=== PATIENT | female | born 1990 | race African-American/Black ===

== ENCOUNTER 2023-03-11 08:12 | Emergency (ER) | payer SELFPAY ==
[2023-03-11 08:20] VITALS: BP 128/94; PULSE 79; RESP 16; TEMP 36.4; O2SAT 99
[2023-03-11 09:04] LABS: BE (Venous) 4 mmol/L (-2-3); HCO3 (Venous) 30 mmol/L (23-28); O2 Sat (Venous) 75 %; TCO2 (Venous) 27 mmol/L (24-29); pCO2 (Venous) 53 mmHg (41-51); pH (Venous) 7.35 (7.31-7.41); pO2 (Venous) 41 mmHg
--- NOTE | 2023-03-11 09:05 | NUR.NOTE ---
Nursing Note: this RN ordered breakfast for Patient. Cheese omelette, jack and unsweetened iced tea.
[2023-03-11 09:06] LABS: Abs Immature Grans 0.02 10^3/uL (0.0-0.06); Absolute Basophil Count 0.04 10^3/uL (0.0-0.2); Absolute Eosinophil Count 0.03 10^3/uL (0.0-0.7); Absolute Lymphocyte Count 1.83 10^3/uL (1.2-3.4); Absolute Monocyte Count 0.56 10^3/uL (0.1-0.8); Absolute Neutrophil Count 5.52 10^3/uL (1.2-6.7); Basophils % 0.5; Eosinophils % 0.4; HCT 41.1 % (36.0-46.0); HGB 13.5 g/dL (11.2-15.7); Immature Grans % 0.3; Lymphocytes % 22.9; MCH 25.5 pg (27.0-33.0); MCHC 32.8 % (32.0-36.0); MCV 78 fL (80-95); MPV 10.4 fL (8.0-11.0); Neutrophils % 68.9; Platelet Count 296 10^3/uL (130-400); RDW 13.4 % (11.7-14.6)
[2023-03-11] MEDS: Normal Saline 1,000 ML 1000 ML IV (09:08)
[2023-03-11 09:21] LABS: ALT 29 U/L (14-59); AST 14 U/L (15-37); Albumin 3.9 g/dL (3.4-5.0); Alkaline Phosphatase 67 U/L (46-116); Anion Gap 6.2 mmol/L (3-11); BUN 15 mg/dL (7-18); Bilirubin, Total 0.3 mg/dL (0.2-1.0); CO2 29.8 mmol/L (21.0-32.0); Calcium 9.3 mg/dL (8.5-10.1); Chloride 99 mmol/L (98-107); Estimated GFR 77.24 (mL/min/1.73m2); Glucose 348 mg/dL (74-106); Magnesium 1.6 mg/dL (1.8-2.4); Potassium 4.4 mmol/L (3.5-5.1); Sodium 135 mmol/L (136-145); Total Protein 7.7 g/dL (6.4-8.2)
--- NOTE | 2023-03-11 10:17 | W.ED.GENAD ---
Discharge Plan Disposition Patient Disposition: Home Discharge Details Clinical Impression: Hyperglycemia due to diabetes mellitus, Genital lesion, female Primary Care Provider: Unknown,Unknown ED Provider: Marlo Arriaga Home Meds and New Rx's Prescriptions: Continued Immune Support 250-12.5 mg Tablet,Chewable 1 tab PO DAILY Changed metformin 500 mg Tablet 1,000 mg PO BID Qty: 60 0RF Discharge Instructions Instructions: Diabetic Hyperglycemia (ED) Additional Instructions: At this time I do not feel that your elevated blood sugar is emergent. Continue to monitor symptoms return immediately if your symptoms change or you have severe worsening. We will contact you with your results from your swab and inform you of any positive result. Otherwise increase your metformin as discussed and continue to monitor your blood sugar. Stand Alone Forms: Work Release Referrals: Primary Care Provider [Outside] - 1 week Medical Decision Making Patient presenting the emergency department for chief complaint of high blood sugars. She has noted blood sugars being in the 400s. She does also state that she has recently had a yeast infection and was started on Diflucan yesterday but then developed a lesion. She states that this is very typical for when she gets a yeast infection. Patient denies all other symptoms, nausea vomiting, abdominal pain fatigue or frequent urination. Physical exam is unremarkable except for noted lesion to the top of the labia minora on the left side. We will plan on checking patient's sugar and labs along with giving her some IV fluids. We will also have patient take additional 500 mg of her metformin that she brought with her. Patient does have a history of diabetes and was previously controlled with insulin but was able to change her diet and get off insulin and now just takes metformin 500 mg twice daily. Reviewed patient's labs and CBC is overall nondiagnostic, VBG shows no acidosis, sodium of 135, glucose of 348, magnesium low at 1.6 so we will orally replete otherwise nondiagnostic CMP. Urinalysis is negative for ketones but does show glucose greater than 1000. Did order a herpes PCR swab as I am concerned that patient's symptoms may not be from yeast infection but from herpetic infection. Patient blood sugar checked after liter of fluids completed and sugar is now 269. I do feel the patient is able to be safely discharged and should increase metformin to 1000 mg twice daily. Will prescribe patient topical metronidazole for the yeast infection but will hold off on any antivirals given the patient states that this happens every time she gets yeast infection. After discussion of diagnosis and plan of care patient has no further needs, questions, or concerns and states clear understanding to return to the emergency department for any worsening symptoms. This documentation was generated using [employer] system, please disregard any oddities of phrase or misspellings. HPI General Mode of arrival: ambulatory. Date/Time Provider Initiated Documentation: 03/11/23 08:25. Limitations to Documentation: no limitations. Information obtained by: patient and RN notes reviewed. History of Present Illness 32 year old F presents to the emergency department with the chief complaint of Elevated blood sugar, genital lesion, described as moderate and similar to prior episodes, Quality is described as burning, and is localized to the genitals. Patient reports no radiation. Patient started experiencing this day(s) (2) and it has been constant. No relieving factors improve symptom(s), No exacerbating factors reported . Patient notes no other symptoms.. Patient did receive the following treatments prior to arrival, other (Diflucan) Related Data Home Medications Medication Instructions Recorded Confirmed metformin 500 mg tablet 1,000 mg PO BID #60 tabs 03/11/23 mv-min-vit C 250 [id number] 1 tab PO DAILY 03/11/23 03/11/23 HCl-herb 124 12.5 mg chewable tablet (Immune Support) Previous Rx's Medication Instructions Recorded metformin 500 mg tablet 1,000 mg PO BID #60 tabs 03/11/23 Allergies Allergy/AdvReac Type Severity Reaction Status Date / Time No Known Allergies Allergy Unverified 03/11/23 08:24 General Stated Complaint: Diabetes JOHANNY: 3 Review of Systems Constitutional Constitutional: Denies chills, Denies fever(s) and Denies malaise Cardiovascular Cardiovascular: Denies chest pain and Denies dyspnea Respiratory Respiratory: Denies cough and Denies dyspnea Gastrointestinal Gastrointestinal: Denies abdominal pain, Denies diarrhea, Denies loose stools and Denies vomiting Genitourinary Genitourinary: Denies hematuria, Reports genital lesions, Denies dysuria, Reports vaginal discharge and Reports vaginal pruritus Musculoskeletal Musculoskeletal: Denies myalgias Integumentary/Breasts Skin/Breast: Denies erythema and Denies rash PFSH All Active Problems (Updated 03/11/23 @ 11:04 by Marlo Arriaga NP) Hyperglycemia due to diabetes mellitus (Acute) Genital lesion, female (Acute) Diabetes (Chronic) Social History Smoking/Tobacco Use Status: Never Smoking risk assessment performed?: Yes Alcohol Intake: never Substance use type: does not use Housing: apartment Do you feel safe at home: Yes Do you feel safe in your relationship?: Yes Exam Const General: cooperative and no acute distress Orientation: alert, awake and oriented x3 Resp Effort & Inspection: normal respiratory effort and able to speak in complete sentences Auscultation: clear to auscultation bilaterally Cardio Rate: regular rate Rhythm: regular rhythm Heart Sounds: S1 normal and S2 normal General: other (RN clinical care manager in room and external only) External Female Exam: normal external appearance, normal appearance of the urethra, no erythema, lesion left labial ulcer and No urethral discharge Neuro General: patient alert, patient awake and patient oriented x3 Extrem General: capillary refill normal Course Vital Signs Vital signs: Vital Signs Temperature 36.4 C 03/11/23 08:20 Pulse 79 03/11/23 08:20 Respiratory Rate 16 03/11/23 08:20 Blood Pressure 128/94 H 03/11/23 08:20 Pulse Oximetry 99 03/11/23 08:20 Temperature 36.4 C 03/11/23 08:20 Temperature Source Oral 03/11/23 08:20 Pulse 79 03/11/23 08:20 Respiratory Rate 16 03/11/23 08:20 Respiratory Effort Normal 03/11/23 08:46 Blood Pressure 128/94 H 03/11/23 08:20 Blood Pressure Position Sitting 03/11/23 08:20 Pulse Oximetry 99 03/11/23 08:20 Oxygen Delivery Method Room Air 03/11/23 08:20 Oxygen Flow Rate 0 03/11/23 08:20 Pain Level 0 03/11/23 08:20 Lab/Test Results Lab/Test Results: Laboratory Tests Range/Units 03/11/23 03/11/23 03/11/23 09:00 09:00 09:00 WBC (4.4-10.8) 10^3/uL 8.00 RBC (3.93-5.22) 10^6/uL 5.30 H Hgb (11.2-15.7) g/dL 13.5 Hct (36.0-46.0) % 41.1 MCV (80-95) fL 78 L MCH (27.0-33.0) pg 25.5 L MCHC (32.0-36.0) % 32.8 RDW (11.7-14.6) % 13.4 Plt Count (130-400) 10^3/uL 296 MPV (8.0-11.0) fL 10.4 Immature Gran % 0.3 Neutrophils % 68.9 Lymphocytes % 22.9 Monocytes % 7.0 Eosinophils % 0.4 Basophils % 0.5 Nucleated RBC % (0.0-0.3) % 0.0 Absolute Neutrophils (1.2-6.7) 10^3/uL 5.52 Absolute Lymphocytes (1.2-3.4) 10^3/uL 1.83 Absolute Monocytes (0.1-0.8) 10^3/uL 0.56 Absolute Eosinophils (0.0-0.7) 10^3/uL 0.03 Absolute Basophils (0.0-0.2) 10^3/uL 0.04 VBG pH (7.31-7.41) 7.35 VBG pCO2 (41-51) mmHg 53 H VBG pO2 mmHg 41 VBG HCO3 (23-28) mmol/L 30 H VBG Total CO2 (24-29) mmol/L 27 VBG O2 Saturation % 75 VBG Base Excess (-2-3) mmol/L 4 H Sodium (136-145) mmol/L 135 L Potassium (3.5-5.1) mmol/L 4.4 Chloride (98-107) mmol/L 99 Carbon Dioxide (21.0-32.0) mmol/L 29.8 Anion Gap (3-11) mmol/L 6.2 BUN (7-18) mg/dL 15 Creatinine (0.55-1.02) mg/dL 1.0 Est GFR (CKD-EPI 2020) (mL/min/1.73m2) 77.24 Glucose (74-106) mg/dL 348 H Calcium (8.5-10.1) mg/dL 9.3 Magnesium (1.8-2.4) mg/dL 1.6 L Total Bilirubin (0.2-1.0) mg/dL 0.3 AST (15-37) U/L 14 L ALT (14-59) U/L 29 Alkaline Phosphatase (46-116) U/L 67 Total Protein (6.4-8.2) g/dL 7.7 Albumin (3.4-5.0) g/dL 3.9
[2023-03-11] MEDS: Magnesium Oxide 400 MG TAB PO (10:25)
--- NOTE | 2023-03-11 10:26 | NUR.NOTE ---
Nursing Note: Cold Storage Superintendent assumed care at 1000 03/11/23
[2023-03-11 10:35] LABS: Bilirubin Negative (Negative); Blood Negative (Negative); Clarity Clear (Clear); Glucose >=1000 mg/dL (Negative); Ketones Negative (Negative); Leukocyte Esterase Negative (Negative); Nitrite Negative (Negative); Specific Gravity 1.015 (1.005-1.025); Urobilinogen 0.2 mg/dL (Up to 0.2)
[2023-03-11 11:25] VITALS: BP 140/102; PULSE 89; RESP 16; O2SAT 100
--- NOTE | 2023-03-13 10:01 | NUR.NOTE ---
Accessed pt chart to determine discharge for medication for genital lesion. Nursing Note:
[2023-03-15 20:29] LABS: HSV 1 PCR Negative (Negative); HSV 2 PCR Positive (Negative)
== END 2023-03-11 11:32 | disposition home or self-care (01) ==
PROVIDERS: Emergency Provider Nurse Practitioner Family
DX: E11.65 Type 2 diabetes mellitus with hyperglycemia (principal); N94.9 Unspecified condition associated with female genital organs and menstrual cycle
CPT/HCPCS: 36416; 80053; 82805; 82962; 87529; 96360; 96361; 99284; 81003; 83735; 85025

== ENCOUNTER 2023-03-13 11:19 | Emergency (ER) | payer SELFPAY ==
[2023-03-13 11:26] VITALS: BP 126/79; PULSE 80; RESP 20; TEMP 36.6; O2SAT 98
--- NOTE | 2023-03-13 11:36 | ED.GENADUL_ITS ---
Discharge Plan Disposition Patient Disposition: Home Condition: Good Discharge Details Clinical Impression: Diabetes, Genital lesion, female, Vaginal yeast infection ED Provider: Radha Mora Home Meds and New Rx's Prescriptions: Continued Immune Support 250-12.5 mg Tablet,Chewable 1 tab PO DAILY metformin 500 mg Tablet 1,000 mg PO BID Qty: 60 0RF Discharge Instructions Instructions: Bacitracin (On the skin), Analgesic (On the skin) Additional Instructions: The lesion on your skin appears to be an open crack in the skin which may be associated with your yeast infection and vaginal discharge. Please continue to treat your yeast infection as previously advised. In regard to the wound, please apply thin layer bacitracin to the area to moisten this and help prevent any infection. Does not appear acutely infected at this time. The discharge that seen seems to be coming more from your vaginal opening consistent with a yeast infection. You may also use the viscous lidocaine 3 times daily as needed for discomfort, I am hoping this will give you some relief when at work. If you develop any new or worsening symptoms please seek care urgently once again. A referral for local primary care as well as diabetic specialist has been sent. Discharge Data Discharge Date/Time-TO BE ENTERED AT DEPARTURE: 03/13/23 12:47 Medical Decision Making Patient is a pleasant 32-year-old female, past medical history significant for diabetes, managed on metformin, presenting today with chief complaint of continued vaginal discharge and pain centrally near the mons. Patient was seen here just a few days ago and notes were reviewed. Patient had evaluation with concern for potential DKA. No evidence of DKA at that time and patient had increasing her metformin to 1000 mg twice daily which she has been taking. Sugars have been slightly improved but continue to be high in the 200s. She does not have any tachypnea. States that she has been feeling somewhat improved. Do not see indication that she has DKA at this time clinically, particularly given her recent workup. She called the hospital concerned that lesion has grown in size. Herpes swab pending. She does reprot that her yeast infection is clearing with oral metronidazole, is now sleeping better. On exam, patient appears nontoxic. She is afebrile, normal breathing pattern with normal VS. Abdomen is nontender. Vaginal exam with nursing staff at bedside. Her primary area of concern was externally at the apex of her labia majora where the lesion in question is located. Quite tender over this area. Visual crack in the skin. She explains this is where the concerning area of possible herpetic lesion was located on previous exam. She has no other lesions or tenderness. At this time, the exam is not consistent with a herpetic lesion, appears more consistent iwth skin breaakdown, likely from her yeast infection. While she does have some thick, white discharge, she feels like this is improving. No surrounding erythema, warmth, swelling or drainage from the area. Discussed with patient. At this itme, her exam is not consistent with herpetic infection although it does sound to have changed from her recent visit. Pain coming from crack in skin from macerated area. Consulted with pharmacy who advised that topical lidocaine would be appropriate to allow the patient able to return to work for intermittent use. Encouraged sitz baths, encouraged showers with washing with soap and keeping area dry between. As area is cracked, will apply Baacitracin. When active or at work, she can use the Lidocaine cream as above. Have referred to local PCP and asked for prompt f/u, also referred to DM management. Advised that the increase in gladys Metformin will take some time to change her BGL but she does not appear to have DKA and her workup recently, when she was feeling worse, did not suggest this. Strict return precautions discussed. All of her questions and concerns were addressed, she is in agreement with this plan. HSV testing still pending. HPI General Date/Time Provider Initiated Documentation: 03/13/23 11:32 . Limitations to Documentation: no limitations . Information obtained by: patient, RN notes reviewed and old records reviewed . History of Present Illness 32 year old F presents to the emergency department with the chief complaint of genital lesion, pain, improving yeast infection, described as severe, Quality is described as burning, and is localized to the genitals. Patient reports no radiation. Patient started experiencing this day(s) and it has been constant. Immobilization improves symptom(s), Movement worsens symptoms . Patient notes no other symptoms.; denies fever/chills, loss of appetite and nausea/vomiting. 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 Review of Systems Constitutional Constitutional: Reports as per HPI, Denies chills, Denies fever(s) and Denies poor appetite Cardiovascular Cardiovascular: Denies chest pain Respiratory Respiratory: Denies cough Gastrointestinal Gastrointestinal: Denies abdominal pain, Denies change in bowel habits, Denies nausea and Denies vomiting Genitourinary Genitourinary: Reports as per HPI Musculoskeletal Musculoskeletal: Reports as per HPI and Denies back pain Integumentary/Breasts Skin/Breast: Reports as per HPI PFSH All Active Problems (Updated 03/13/23 @ 12:37 by ZANE Parra) Hyperglycemia due to diabetes mellitus (Acute) Genital lesion, female (Acute) Vaginal yeast infection (Acute) Diabetes (Chronic) Social History Smoking/Tobacco Use Status: Never Smoking risk assessment performed?: Yes Alcohol Intake: never Substance use type: does not use Housing: apartment Do you feel safe at home: Yes Do you feel safe in your relationship?: Yes Exam Const General: cooperative, healthy appearing, comfortable, no acute distress, well developed and well groomed Nutritional Appearance: well nourished and overweight Orientation: alert and awake Resp Effort & Inspection: normal respiratory effort and no respiratory distress Auscultation: clear to auscultation bilaterally, no rales, no rhonchi and no wheezes Cardio Rate: regular rate Rhythm: regular rhythm Heart Sounds: S1 normal and S2 normal GI Inspection: normal to inspection Palpation: soft, no hepatosplenomegaly, not firm, no guarding, not rigid and nontender External Female Exam: externally tender (centrally at top of the labia majora where area meets near mons), no external swelling, lesion (crack) and No Bartholin cyst Back/Spine/Pelvis Back: no CVA tenderness Skin Trauma: laceration (small linear skin crack at apex of labia majora) Neuro General: patient alert and patient awake Cognition: normal cognition Speech: speech normal Gait: normal gait Psych Appearance: grossly normal and well kempt Mental Status: mental status grossly normal Speech and Movement: speech and movement normal Course Vital Signs Vital signs: Vital Signs Temperature 36.6 C 03/13/23 11:26 Pulse 80 03/13/23 11:26 Respiratory Rate 20 03/13/23 11:26 Blood Pressure 126/79 03/13/23 11:26 Pulse Oximetry 98 03/13/23 11:26 Temperature 36.6 C 03/13/23 11:26 Temperature Source Oral 03/13/23 11:26 Pulse 80 03/13/23 11:26 Respiratory Rate 20 03/13/23 11:26 Respiratory Effort Normal 03/13/23 11:33 Blood Pressure 126/79 03/13/23 11:26 Blood Pressure Position Sitting 03/13/23 11:26 Pulse Oximetry 98 03/13/23 11:26 Oxygen Delivery Method Room Air 03/13/23 11:26 Oxygen Flow Rate 0 03/13/23 11:26 Pain Level 0 03/13/23 11:26
[2023-03-13 12:46] VITALS: BP 128/74; PULSE 78; RESP 16; TEMP 36.4; O2SAT 98
[2023-03-13] MEDS: Lidocaine 2% Jelly 6 ML SYR TP (12:48)
[2023-03-13] MEDS: Bacitracin 30 GM TUBE TP (12:48)
--- NOTE | 2023-03-13 13:32 | NUR.NOTE ---
Nursing Note: Referral given to Care Management for needs PCP, diabetes, establish care/within 1 to 2 weeks. Referral given to Care management for appt with director of career services, blood sugar in 400's/ within 1 to 2 weeks.
== END 2023-03-13 12:47 | disposition home or self-care (01) ==
PROVIDERS: Emergency Provider Physician Assistant
DX: N90.89 Other specified noninflammatory disorders of vulva and perineum (principal); B37.31 Acute candidiasis of vulva and vagina; E11.9 Type 2 diabetes mellitus without complications; Z79.84 Long term (current) use of oral hypoglycemic drugs
CPT/HCPCS: 99282